=== PATIENT | male | born 1995 | race Two or more races ===

== ENCOUNTER 2017-12-17 22:58 | Emergency (ER) | payer BC ==
[~2017-12-17] VITALS: Ht 175.3 cm; Wt 68.0 kg
[2017-12-17 22:58] VITALS: BP 106/70
[2017-12-17 23:15] VITALS: BP 106/70
--- NOTE | 2017-12-18 02:00 | Emergency Room Report ---
History of Present Illness General Chief Complaint: Syncope Source: Patient Present Illness HPI 22YOM BIBEMS for ?ETOH intox and marijuana abuse Patient endorses 1 drink and smoked marijuana States he "does that all the time," but was feeling tired today, fell asleep at the bar Per EMS, bystanders called EMS Patient was immediately responsive upon arousal He denies CP, SOB, abd ganesh, headache Denies history of cardiac arrythmia, seizures, syncope Feels "fine" now. Allergies: Coded Allergies: No Known Allergies (Unverified , 12/17/17) Patient History Past Medical History: none Past Surgical History: none Pertinent Family History: none Social History: Reports: alcohol use, drug use Reviewed Nursing Documentation: PMH: Agreed, PSxH: Agreed Nursing Documentation-PMH Past Medical History: No Stated History Review of Systems All Other Systems: negative except mentioned in HPI Physical Exam Vital Signs Date Time Temp Pulse Resp B/P (MAP) Pulse Ox O2 Delivery O2 Flow Rate FiO2 12/17/17 22:41 98.1 69 16 106/70 100 Room Air Sp02 EP Interpretation: reviewed, normal General Appearance: normal inspection, well appearing, no apparent distress, alert, GCS 15, non-toxic, other - Not intoxicated Head: normocephalic, atraumatic Eyes: bilateral eye PERRL, bilateral eye EOMI ENT: normal ENT inspection, hearing grossly normal, normal pharynx, no angioedema, normal voice, TMs + canals normal, uvula midline, moist mucus membranes Neck: normal inspection, full range of motion, supple, thyroid normal, no meningismus, no bony tend Respiratory: normal inspection, lungs clear, normal breath sounds, no rhonchi, no respiratory distress, no retraction, no accessory muscle use, no wheezing, speaking full sentences Cardiovascular #1: regular rate, rhythm, no edema, no JVD, normal capillary refill Gastrointestinal: normal inspection, normal bowel sounds, non tender, soft, no mass, no peritonitis, non-distended, no guarding, no hernia, no pulsatile mass Genitourinary: no CVA tenderness Musculoskeletal: normal inspection, back normal, normal range of motion, no calf tenderness, pelvis stable, Ismael's Sign negative Neurologic: normal inspection, alert, oriented x3, responsive, roll hand III-XII nml as tested, motor strength/tone normal, cerebellar normal, normal gait, speech normal Psychiatric: normal inspection, judgement/insight normal, mood/affect normal, no suicidal/homicidal ideation, no delusions Skin: normal inspection, normal color, no rash Lymphatic: normal inspection, no adenopathy Medical Decision Making Diagnostic Impression: Primary Impression: Alcohol intoxication Qualified Codes: F10.920 - Alcohol use, unspecified with intoxication, uncomplicated Additional Impression: Marijuana smoker ER Course 22YOM with ?ETOH, drug abuse intox Now sober VSS, Afebrile Ambulating in ED, interactive, calm, cooperative Asymptomatic Atraumatic Wants to go home, lives nearby, has phone/wallet/keys ER course: Patient has remained stable during ED stay. Disposition: Patient is to be discharged to home. Patient is instructed to follow up with their primary care doctor within 5 days. Strict return precautions discussed with patient such as fever, chills, worsening/severe pain, nausea, vomiting, which may indicate severe illness. Patient verbalizes understanding and agrees with plan. Please note that this Emergency Department Report was dictated using [employer] technology software, occasionally this can lead to erroneous entry secondary to interpretation by the dictation equipment Last Vital Signs Date Time Temp Pulse Resp B/P (MAP) Pulse Ox O2 Delivery O2 Flow Rate FiO2 12/17/17 23:15 98.1 69 16 106/70 100 Room Air Status: improved Disposition: HOME, SELF-CARE Condition: Improved Referrals: NOT CHOSEN IPA/,REFERRING (PCP) Patient Instructions: Alcohol Intoxication, [id number] KARTHIKEYAN GARCIA M.D. Dec 18, 2017 02:00
== END 2017-12-18 00:10 | disposition home or self-care (01) ==
LOC: EDBD 22:58 → EMR 23:59
DX: F10.920 Alcohol use, unspecified with intoxication, uncomplicated (principal); F12.90 Cannabis use, unspecified, uncomplicated
CPT/HCPCS: 99283